=== PATIENT | female | born 1950 | race Caucasian/White ===

== ENCOUNTER → 2022-04-23 | Outpatient (CLI) | payer MEDICARE, OTHER ==
--- NOTE | 2022-04-23 16:03 | DIREP ---
PROCEDURE:CHEST 1 VIEW COMPARISON:None. INDICATIONS:T17.908A ASPIRATION INTO AIRWAY FINDINGS: LUNGS/PLEURA:Lordotic projection. No significant pulmonary parenchymal abnormalities or pleural effusion. Left breast implant. CARDIAC:Prominent cardiac silhouette and normal pulmonary vascularity. Aortic arch calcifications. MEDIASTINUM:Normal BONES:Normal OTHER:No additional findings. CONCLUSION:No acute cardiopulmonary process. Dictated by: Thelma Salvador MD on 04/23/2022 at 04:01 PM
== END | disposition home or self-care (01) ==
LOC: RAD 15:08
DX: T17.908A Unspecified foreign body in respiratory tract, part unspecified causing other injury, initial encounter (principal); I70.0 Atherosclerosis of aorta; X58.XXXA Exposure to other specified factors, initial encounter; Y93.89 Activity, other specified; Y92.89 Other specified places as the place of occurrence of the external cause; Y99.8 Other external cause status
CPT/HCPCS: 71045